=== PATIENT | female | born 1955 | race Hispanic/Latino ===

== ENCOUNTER 2020-11-23 06:22 | Day surgery (SDC) | payer MEDICARE ==
[2020-11-19 09:29] LABS: BASOPHILS % (AUTO) 0.5 % (0.0-5.0); EOSINOPHILS % (AUTO) 2.2 % (0.0-8.0); HEMATOCRIT 36.5 % (36-48); LYMPHOCYTES % (AUTO) 17.6 % (21.0-51.0); MEAN CORPUSCULAR HEMOGLOBIN 28.4 pg (27.0-33.0); MEAN CORPUSCULAR HGB CONC 31.2 g/dL (32.0-36.0); MEAN CORPUSCULAR VOLUME 90.8 fL (79-99); MONOCYTES % (AUTO) 5.3 % (3.0-13.0); PLATELET COUNT (AUTO) 347 K/uL (130-400); RED BLOOD CELL COUNT(AUTO) 4.02 MIL/uL (4.00-5.50); RED CELL DISTRIBUTION WIDTH 13.3 % (11.0-15.5); WHITE BLOOD COUNT (AUTO) 10.6 K/uL (4.8-10.8)
[2020-11-19 09:31] LABS: APPEARANCE,URINE Cloudy (CLEAR); BILIRUBIN,URINE Negative (NEGATIVE); COLOR,URINE Yellow (YELLOW); GLUCOSE, URINE (UA) Negative (NEGATIVE); KETONES,URINE Trace mg/dL (NEGATIVE); LEUKOCYTE ESTERASE ,URINE Small (NEGATIVE); NITRATE,URINE Negative (NEGATIVE); OCCULT BLOOD,URINE Negative (NEGATIVE); PROTEIN,URINE Negative (NEGATIVE)
[2020-11-19 09:39] LABS: POTASSIUM 4.2 mmol/L (3.5-5.1)
[2020-11-19 09:50] LABS: INR 1.04 (0.85-1.15); PROTHROMBIN TIME 11.3 SEC (9.6-11.6)
[2020-11-19 09:51] LABS: PARTIAL THROMBOPLASTIN TIME 24.8 SEC (26.3-35.5)
[2020-11-19 09:52] LABS: RBC,URINE 0-1 /HPF (0-1)
[2020-11-19 09:53] LABS: BACTERIA,URINE Few /HPF (None Seen); MUCUS,URINE Rare LPF (None Seen); SQUAMOUS EPITHELIAL CELL,UR Many /HPF (0-2)
[2020-11-22 15:11] VITALS: BP 160/82
[~2020-11-23] VITALS: Ht 152.4 cm; Wt 82.1 kg
[2020-11-23] VITALS (11 sets, daily range): BP systolic 102–164; BP diastolic 40–53
[~2020-11-23 06:22] MED LIST: CETI10TA57 PO; EZET-59 PO; INSU100I26 SQ; LEVO88CA4 PO; LOSA1TAB54 PO; MONT10TA32 PO; SITA1TAB6 PO; VENL-53 PO
[2020-11-23] MEDS ORDERED: 0.9%NACL 1000ML 1,000 ML IV ONE (09:06)
[2020-11-23] MEDS ORDERED: BIVALIRUDIN 250 MG/VIAL IV ONE (10:23)
[2020-11-23] MEDS ORDERED: SODIUM BICARB 50MEQ 50ML VIAL 50 ML ONE (10:23)
[2020-11-23] MEDS ORDERED: IOHEXOL 350 MG/ML 100ML INFUS..BTL IV ONE (10:24)
[2020-11-23] MEDS ORDERED: FENTANYL CITRATE PF 50 MCG/1 ML 2ML VIAL ONE (10:24)
[2020-11-23] MEDS ORDERED: HEPARIN 10,000 UNIT/10ML (1,000 UNIT/ML) VIAL ONE (10:24)
[2020-11-23] MEDS ORDERED: MIDAZOLAM HCL 1 MG/ML 2ML VIAL ONE (10:24)
[2020-11-23] MEDS ORDERED: NITROGLYCERIN 2 MG VIAL IV ONE (10:24)
[2020-11-23] MEDS ORDERED: LIDOCAINE HCL 400MG/20ML VIAL ONE (10:24)
[2020-11-23] MEDS ORDERED: LABETALOL 20MG VIAL IV ONE (11:39)
[2020-11-23] MEDS ORDERED: 0.9%NACL 1000ML 1,000 ML IV SCH (12:00)
[2020-11-23] MEDS ORDERED: METO-408 PO (12:00)
== END 2020-11-23 18:46 | disposition home or self-care (01) ==
LOC: DAH 06:22
PROVIDERS: ATTEND Internal Medicine Cardiovascular Disease
DX: I25.110 Atherosclerotic heart disease of native coronary artery with unstable angina pectoris (principal); I35.0 Nonrheumatic aortic (valve) stenosis; I10 Essential (primary) hypertension; E78.5 Hyperlipidemia, unspecified; E11.9 Type 2 diabetes mellitus without complications; Z79.01 Long term (current) use of anticoagulants; Z79.899 Other long term (current) drug therapy; Z98.890 Other specified postprocedural states; Z90.710 Acquired absence of both cervix and uterus; Z82.49 Family history of ischemic heart disease and other diseases of the circulatory system; Z83.3 Family history of diabetes mellitus
CPT/HCPCS: 36415; 71045; 80048; 81001; 82948 ×2; 85025; 85610; 85730; 93005; 93460; A4215; A4216; A4221; A4222; A4223 ×3; A4606; A4663; C1760; C1769; C1893; C1894 ×4; J1644 ×2; J2250; J3010; J3490 ×4; J7030; Q9965 ×2; Q9967; 99156; 99157; J0583